=== PATIENT | female | born 1990 | race Caucasian/White ===

== ENCOUNTER → 2016-11-20 | Outpatient (CLI) | payer OTHER ==
[~2016-11-20] MED LIST: GADOBUTROL 7.5 MMOL/7.5 ML VIAL INT ART ONE; IOHEXOL 300 MG/ML 10ML VIAL. INT ART ONE; LIDOCAINE 1% Multi-Dose 20 ML VIAL. ID ONE
--- NOTE | 2016-11-20 14:21 | KCIC ---
Fluoroscopic guided left shoulder injection dated 11/20/2016: No comparison available. Clinical Indication: Gadolinium injection for MRI. Technical factors: The potential benefits and risks of the procedure were discussed with the patient and informed consent was obtained. The anterior left shoulder was prepped and draped in a sterile fashion. After local anesthesia, a 22-gauge spinal needle was inserted into the left shoulder joint using an anterior approach.Following negative aspiration, 15 cc's of a solution of 5cc Omnipaque contrast, 5 cc 1% lidocaine, 10 cc normal saline, and 0.1 cc gadolinium was injected without difficulty. The needle was then removed and a dry sterile dressing was applied. The patient was then sent to the MR suite for imaging. The patient tolerated the procedure well. 1.13 minutes fluoroscopic time used for the study. One image. Findings: Single fluoroscopic image shows needle tip at the medial inferior 1/3 of the humeral head. Contrast material extends into the joint space. Impression: Fluoroscopic guided left shoulder injection for MRI as described above. Electronically signed by: Morales Caldera MD (11/20/2016 2:18 PM) [id number]
--- NOTE | 2016-11-20 14:58 | KCIC ---
MR arthrogram left shoulder dated 11/20/2016. No comparison available. CLINICAL INDICATION: Shoulder pain TECHNIQUE: Fat-saturated T1 weighted imaging performed in the coronal, axial and abduction external rotation planes following the intra-articular injection of dilute gadolinium. Injection portion of the study will be reported separately. In addition, standard T2-weighted imaging performed in 3 planes along with a nonfat saturated T1 sagittal sequence. FINDINGS: Adequate distention of the joint space with contrast material. Glenoid labrum is intact. No apparent labral tear or perilabral cyst. No glenoid cartilage defect. No intra-articular loose body. Long head biceps tendon and biceps anchor are intact. Rotator cuff is intact. No focal tendinosis or partial-thickness tearing. No cuff retraction. Subscapularis is intact. AC joint unremarkable. No significant undersurface spurring. No significant subacromial/subdeltoid bursal fluid collection. Suprascapular and spinoglenoid notches are clear. No significant muscle edema or muscle atrophy. Small amount of edema within the subscapularis muscle is likely related to joint injection. IMPRESSION: 1. No evidence of internal derangement. No apparent labral tear. 2. Intact rotator cuff. Electronically signed by: Morales Caldera MD (11/20/2016 2:55 PM) [id number]
== END | disposition home or self-care (01) ==
LOC: KCIC 13:08
PROVIDERS: ATTEND Physician Assistant
DX: M25.512 Pain in left shoulder (principal)
CPT/HCPCS: 73040; 73222; A9585; Q9967